=== PATIENT | female | born 1990 | race Caucasian/White ===

== ENCOUNTER 2024-03-07 18:51 | Emergency (ER) | payer MEDICAID, SELFPAY ==
--- NOTE | 2024-03-07 19:02 | XR_ITS ---
Patient: KIMBERLY MCNAMARA Facility:?[facility] Patient ID:?[id number] Site Patient ID:?[id number] Site :?1990 Study:?XRay-Extremity Right 3V-03/07/2024 7:23:48 PM Ordering Physician:REMEDIOS Final Report: Indication: Injury. Technique: Right elbow 3 views. Comparison: None. Findings: Bones: Alignment is normal. No fractures or bone lesions. Joint spaces: Unremarkable. No joint effusion. Soft tissues: Unremarkable. Impression: No evidence of an acute bony abnormality. Dictated by Sandip Corona MD @ 03/07/2024 7:36:36 PM Signed by:?Sandip Corona MD @03/07/2024 7:36:36 PM (Electronic Signature)
--- NOTE | 2024-03-07 19:03 | ED_ITS ---
HPI - General Adult General Chief complaint: Extremity Pain/Injury, Upper Stated complaint: injured elbow Time Seen by Provider: 03/07/24 18:55 History of Present Illness HPI narrative: This 33-year-old female comes in reporting an injury to her right elbow that occurred just prior to arrival. She was at home and talking on her phone and had her arm up in the air above her head and accidentally bumped into a brick structure that surrounds a chimney in the home. She did not fall or have loss of consciousness. She states that she did fracture that elbow when she was about fiber 5 years old. She does not report any other injury. She indicates pain primarily in the right elbow and has no other injury. Related Data Previous Rx's Medication Instructions Recorded ketorolac 10 mg tablet 10 mg PO Q8H 5 days #15 tabs 03/07/24 Allergies Allergy/AdvReac Type Severity Reaction Status Date / Time No Known Drug Allergies Allergy Verified 03/07/24 19:24 Review of Systems Status of ROS: Reports: 10 or more systems reviewed and unremarkable except as noted in History and below Narrative: Constitutional: No fevers, no weight gain or loss. Eyes: No discharge. No vision changes. HENT: No congestion, no sore throat, no ear pain. Cardiovascular: No chest pain, no palpitations. Respiratory: No shortness of breath, no wheezes, no cough. Gastrointestinal: No abdominal pain, no vomiting, no diarrhea. Genitourinary: No dysuria, no hematuria. Musculoskeletal: Diffuse pain in the right elbow. Skin: No rashes, no pruritis. Neurological: No dizziness, weakness, sensory change, speech change. Endo/Heme/Allergies: No bruising or bleeding. No polydipsia. Pysch: no suicidality, no anxiety, no insomnia. All other systems reviewed and are negative. PFSH PFSH Social History Smoking Status: Never smoker Non-prescribed substance use: denies use Exam Narrative: Exam Narrative: Constitutional: Well-developed, well-nourished, no acute distress. HEENT: Normocephalic, atraumatic. Neck: Normal range of motion. Nontender. Supple. Heart: Intact distal pulses. Lungs: No chest discomfort. No wheezes, rhonchi, or rales. Abdomen: Nontender. Back: Normal range of motion. Extremities: Pain in the right elbow with no sign of skin injury or swelling or deformity. Skin: Intact. No rash. Warm. No erythema or pallor. Neurologic: No altered sensation. No weakness. Alert and oriented. Psychiatric: No suicidality. No anxiety or depression. No insomnia. Nursing notes and vitals signs are reviewed. Const: Vital Signs, click to edit/add: Vital Signs - 24 hr 03/07/24 19:07 Temperature 97.7 F Pulse Rate [Left P ulse Oximeter] 72 Respiratory Rate 18 Blood Pressure [Le ft Upper Arm] 124/88 Pulse Oximetry 99 Oxygen Delivery Me thod Room Air Course Vital Signs Vital signs: Initial Vital Signs Temperature 97.7 F 03/07/24 19:07 Temperature Source Temporal Artery Scan 03/07/24 19:07 Pulse Rate 72 03/07/24 19:07 Pulse Rhythm Regular 03/07/24 19:07 Pulse Strength 3+ Normal 03/07/24 19:07 Respiratory Rate 18 03/07/24 19:07 Blood Pressure 124/88 03/07/24 19:07 Blood Pressure Mean 100 03/07/24 19:07 Blood Pressure Position Sitting 03/07/24 19:07 Pulse Oximetry 99 03/07/24 19:07 Oxygen Delivery Method Room Air 03/07/24 19:07 Vital Signs Temperature 97.7 F 03/07/24 19:07 Pulse Rate 72 03/07/24 19:07 Respiratory Rate 18 03/07/24 19:07 Blood Pressure 124/88 03/07/24 19:07 Pulse Oximetry 99 03/07/24 19:07 Oxygen Delivery Method Room Air 03/07/24 19:07 Temperature 97.7 F 03/07/24 19:07 Pulse Rate 72 03/07/24 19:07 Respiratory Rate 18 03/07/24 19:07 Blood Pressure 124/88 03/07/24 19:07 Pulse Oximetry 99 03/07/24 19:07 Oxygen Delivery Method Room Air 03/07/24 19:07 Medical Decision Making MDM Narrative Medical decision making narrative: This patient comes in with an injury to her right elbow as described above. X- ray imaging shows no sign of fracture or dislocation. The patient did receive a sling to be used as needed. I did encourage her to increase activity as tolerated. She also received a prescription for Toradol. Imaging Data XR R Elbow: Radiologist's impression: No evidence of an acute bony abnormality. Discharge Plan Discharge Clinical Impression: Contusion of elbow, right Patient Disposition: Home, Self-Care Condition: Stable Additional Instructions: Use sling as needed. Increase activity as tolerated. Take medicine also as needed and directed. Return if worsening. Prescriptions: New ketorolac 10 mg tablet 10 mg PO Q8H 5 Days Qty: 15 0RF Follow Up/Referrals: Provider,Not a Local [Primary Care Provider] - Stand Alone Forms: [employer] Info Instructions
[2024-03-07 19:07] VITALS: BP 124/88; PULSE 72; RESP 18; TEMP 36.5; O2SAT 99; BMI 27.9
[2024-03-07 20:04] VITALS: BP 124/88; PULSE 72; RESP 18; TEMP 36.5
== END 2024-03-07 20:04 | disposition home or self-care (01) ==
PROVIDERS: Emergency Provider Emergency Medicine Emergency Medical Services
DX: M25.521 Pain in right elbow (principal); W22.8XXA Striking against or struck by other objects, initial encounter
CPT/HCPCS: 73080; 99283; 99284

== ENCOUNTER 2024-12-31 08:50 | Emergency (ER) | payer MEDICAID, BC, SELFPAY ==
[2024-12-31 09:03] VITALS: BP 102/71; PULSE 79; RESP 16; TEMP 36.4; O2SAT 97; BMI 29.4
[2024-12-31 09:41] LABS: Strep A DNA Probe* NOT DETECTED (Not Detectd)
[2024-12-31] MEDS: DEXAMETHASONE 10 MG/ML PF PO (09:42)
--- NOTE | 2024-12-31 09:47 | ED_ITS ---
HPI - General Adult General Date Seen: 12/31/24 Chief complaint: Sore Throat Stated complaint: Short of breath, sore throat Time Seen by Provider: 12/31/24 08:54 Source: patient Mode of arrival: ambulatory Limitations: no limitations History of Present Illness HPI narrative: Patient is a 34-year-old female with no pertinent medical problems presenting to the emergency department for multiple complaints. She states for the past 5 days she has been feeling short of breath and has been having a sore throat. Her son started having similar symptoms 2-3 days ago. She has not noticed any f kristal or chills but does states her throat will hurt whenever she tries to eat or take a deep breath. Denies any chest pain, lightheadedness, dizziness. Not aware of any sick contacts other than her family. Has been having some mild rhinorrhea. Has been using DayQuil with minimal improvement in her symptoms. Has not noticed any swelling underneath her tongue. Denies headache, abdominal pain, nausea/vomiting, diarrhea, weakness. Related Data Home Medications ?Medication ?Instructions ?Recorded ?Confirmed No Known Home Medications 12/31/24 12/31/24 Allergies Allergy/AdvReac Type Severity Reaction Status Date / Time Sulfa (Sulfonamide Allergy Unknown Verified 12/31/24 09:06 Antibiotics) Review of Systems Status of ROS: Reports: 10 or more systems reviewed and unremarkable except as noted in History and below [facility] Social History Smoking Status: Never smoker Do you use any of these nicotine containing products: None How often do you have a drink containing alcohol: never How often do you have six or more drinks on one occasion: Never AUDIT-C Alcohol total score: 0 Non-prescribed substance use: denies use Exam Narrative: Exam Narrative: Const: Well-nourished, Well-developed, in mild distress Eyes: PERRL, no conjunctival injection, and symmetrical lids HENT: Atraumatic external nose and ears. Moist mucous membranes. Uvula midline, no tonsillar exudate or swelling. Mild posterior oropharynx erythema. No swelling under tongue Neck: Symmetric, trachea midline, No thyromegaly. CVS: RRR, No murmurs or gallops. Peripheral pulses 2+ and equal in all extremities RESP: Unlabored respiratory effort. Clear to auscultation bilaterally. GI: Nontender/Nondistended, No rebound or guarding. MSK:Extremities w/o deformity, Normal Active ROM Skin: Warm, Dry. No rashes or lesions. Neuro: Normal Muscle tone, No focal neurological deficits. Psych: Awake, Alert, & Oriented x3. Appropriate mood and affect. Const: Vital Signs, click to edit/add: Vital Signs - 24 hr 12/31/24 09:03 Temperature 97.5 F L Pulse Rate [Pulse Oximeter] 79 Respiratory Rate 16 Blood Pressure [Ri t Upper Arm] 102/71 Pulse Oximetry 97 Oxygen Delivery Me thod Room Air Course Vital Signs Vital signs: Initial Vital Signs Temperature 97.5 F L 12/31/24 09:03 Temperature Source Temporal Artery Scan 12/31/24 09:03 Pulse Rate 79 12/31/24 09:03 Respiratory Rate 16 12/31/24 09:03 Blood Pressure 102/71 12/31/24 09:03 Blood Pressure Mean 81 12/31/24 09:03 Blood Pressure Position Sitting 12/31/24 09:03 Pulse Oximetry 97 12/31/24 09:03 Oxygen Delivery Method Room Air 12/31/24 09:03 Vital Signs Temperature 97.5 F L 12/31/24 09:03 Pulse Rate 79 12/31/24 09:03 Respiratory Rate 16 12/31/24 09:03 Blood Pressure 102/71 12/31/24 09:03 Pulse Oximetry 97 12/31/24 09:03 Oxygen Delivery Method Room Air 12/31/24 09:03 Temperature 97.5 F L 12/31/24 09:03 Pulse Rate 79 12/31/24 09:03 Respiratory Rate 16 12/31/24 09:03 Blood Pressure 102/71 12/31/24 09:03 Pulse Oximetry 97 12/31/24 09:03 Oxygen Delivery Method Room Air 12/31/24 09:03 Medications Administered Medications: Discontinued Medications Generic Name Dose Route Start Last Admin Trade Name Freq PRN Reason Stop Dose Admin Dexamethasone Sodium Phosphate 10 mg 12/31/24 09:21 12/31/24 09:42 Dexamethasone 10 Mg/Ml Pf PO 12/31/24 09:22 10 mg ONCE ONE Administration Medical Decision Making MDM Narrative Medical decision making narrative: Patient is a 34-year-old female presenting for what sounds like viral symptoms. Will test for strep, COVID, flu, RSV. Will give her dexamethasone for her sore throat. Will do a chest x-ray look for signs of pneumonia. Patient is not showing signs of peritonsillar abscess, Alejandro angina, retropharyngeal abscess,Lemierre disease or any other concerning oral pharynx or deep neck space abscesses. Imaging is not necessary of her neck. Chest x-ray shows no acute concerning abnormalities. Strep and viral swabs are negative. She will be discharged. She is agreeable to this plan. Lab Data Labs: Lab Results 12/31/24 Range/Units 09:00 SARS-CoV-2 (PCR) Negative SARS-CoV-2 (Negative) Influenza Type A (PCR) Negative PCR FLU A (Negative) Influenza Type B (PCR) Negative PCR FLU B (Negative) RSV (PCR) Negative PCR RSV (Negative) Group A Strep DNA NOT DETECTED (Not Detectd) Imaging Data Chest x-ray: Attestation: I have reviewed the pertinent imaging results. Radiologist's impression: Cardiovascular and mediastinum: Heart size and vasculature are normal in caliber and appearance. Mediastinum is within normal limits. Lungs and pleural spaces: Lungs are clear. No sign of infiltrate or mass. No sign of pleural effusion. No pneumothorax. Bones and soft tissues: No significant findings. Dictated by Antolin Grossman MD @ 12/31/2024 9:59:23 AM Discharge Plan Discharge Clinical Impression: Acute viral syndrome Patient Disposition: Home, Self-Care Condition: Stable Instructions: Viral Syndrome (ED) Additional Instructions: Take Tylenol and ibuprofen for symptoms. Return to emergency department for new or worsening symptoms. I believe your symptoms are likely from a virus. Prescriptions: No Action No Known Home Medications Follow Up/Referrals: Provider,Not a Local [Primary Care Provider] - Stand Alone Forms: [email or web address] Info Instructions
[2024-12-31 09:57] LABS: PCR FLU A Negative PCR FLU A (Negative); PCR FLU B Negative PCR FLU B (Negative); PCR RSV Negative PCR RSV (Negative); SARS PCR* Negative SARS-CoV-2 (Negative)
== END 2024-12-31 10:53 | disposition home or self-care (01) ==
PROVIDERS: Emergency Provider Student in an Organized Health Care Education/Training Program
DX: B34.9 Viral infection, unspecified (principal)
CPT/HCPCS: 71046; 87631; 87651; 99283; J1100

== ENCOUNTER 2025-01-03 17:20 | Emergency (ER) | payer BC, MEDICAID, SELFPAY ==
[2025-01-03 17:23] VITALS: BP 107/73; PULSE 94; RESP 18; TEMP 36.8; O2SAT 96; BMI 29.8
--- NOTE | 2025-01-03 17:37 | ED.GENADULT ---
HPI - General Adult General Chief complaint: Cough Stated complaint: Congested, Sinus Pressure, Left shoulder pain Time Seen by Provider: 01/03/25 17:22 Source: patient Mode of arrival: ambulatory Limitations: no limitations History of Present Illness HPI narrative: 34-year-old female presenting with congestion, cough, decreased energy for 2 weeks. She was seen 3 days ago triple swab was negative, strep negative and chest x-ray was clear. She states that she received a dose of steroid and felt better for about a day and half but now she has increased pain across her face, increased thick nasal discharge. Cough has not improved any. She denies fevers, no chills. No vomiting. No rashes. Cough is mild and nonproductive. She is not short of breath. Related Data Previous Rx's ?Medication ?Instructions ?Recorded amoxicillin 875 mg-potassium 1 tab PO BID 5 days #10 tabs 01/03/25 clavulanate 125 mg tablet Allergies Allergy/AdvReac Type Severity Reaction Status Date / Time Sulfa (Sulfonamide Allergy Unknown Verified 01/03/25 17:29 Antibiotics) Review of Systems Status of ROS: Reports: 10 or more systems reviewed and unremarkable except as noted in History and below [facility] Social History Smoking Status: Never smoker Do you use any of these nicotine containing products: None How often do you have a drink containing alcohol: never How often do you have six or more drinks on one occasion: Never AUDIT-C Alcohol total score: 0 Non-prescribed substance use: denies use Exam Narrative: Exam Narrative: Well-nourished well-developed patient in no acute distress. Alert and oriented. Answers questions appropriately. Mood and affect are appropriate. Thoughts are goal oriented and rational. No tangential or magical thinking noted. Patient speaks in full sentences without needing to catch her breath. Sounds quite congested. HEENT: Normocephalic atraumatic. Pupils are equally round reactive to light. Extraocular muscles are intact. Conjunctivae are moist without any icterus noted. Moist mucous membranes. Posterior pharynx is normal. Neck is soft without any lymphadenopathy or thyromegaly. No masses are appreciated. Tenderness across the maxillary sinuses. Cardiovascular: Heart is regular rate and rhythm S1 and S2 are present without any murmurs. Lungs: Clear to auscultation bilaterally no wheezes rhonchi or rales are appreciated. Patient takes deep breaths without any discomfort. Skin: Well perfused without any obvious rashes. Const: Vital Signs, click to edit/add: Vital Signs - 24 hr 01/03/25 17:23 Temperature 98.3 F Pulse Rate [Right Pulse Oximeter] 94 Respiratory Rate 18 Blood Pressure [Ri ght Upper Arm] 107/73 Pulse Oximetry 96 Oxygen Delivery Me thod Room Air Course Vital Signs Vital signs: Initial Vital Signs Temperature 98.3 F 01/03/25 17:23 Temperature Source Temporal Artery Scan 01/03/25 17:23 Pulse Rate 94 01/03/25 17:23 Pulse Rhythm Regular 01/03/25 17:23 Pulse Strength 3+ Normal 01/03/25 17:23 Respiratory Rate 18 01/03/25 17:23 Blood Pressure 107/73 01/03/25 17:23 Blood Pressure Mean 84 01/03/25 17:23 Blood Pressure Position Sitting 01/03/25 17:23 Pulse Oximetry 96 01/03/25 17:23 Oxygen Delivery Method Room Air 01/03/25 17:23 Vital Signs Temperature 98.3 F 01/03/25 17:23 Pulse Rate 94 01/03/25 17:23 Respiratory Rate 18 01/03/25 17:23 Blood Pressure 107/73 01/03/25 17:23 Pulse Oximetry 96 01/03/25 17:23 Oxygen Delivery Method Room Air 01/03/25 17:23 Temperature 98.3 F 01/03/25 17:23 Pulse Rate 94 01/03/25 17:23 Respiratory Rate 18 01/03/25 17:23 Blood Pressure 107/73 01/03/25 17:23 Pulse Oximetry 96 01/03/25 17:23 Oxygen Delivery Method Room Air 01/03/25 17:23 Medical Decision Making MDM Narrative Medical decision making narrative: 34-year-old female with acute sinusitis. Will treat with Augmentin for 5 days. Discharge Plan Discharge Clinical Impression: Sinusitis Patient Disposition: Home, Self-Care Condition: Stable Additional Instructions: Recommend twice daily Neti pot use, okay to use ibuprofen as needed/as directed for aches and pains. Get plenty of rest and stay well hydrated. Use antibiotics as directed for 5 days. Prescriptions: New amoxicillin-pot clavulanate 875-125 mg tablet 1 tab PO BID 5 Days Qty: 10 0RF Follow Up/Referrals: Provider,Not a Local [Primary Care Provider] - Stand Alone Forms: [employer] Info Instructions
== END 2025-01-03 17:45 | disposition home or self-care (01) ==
LOC: ED 17:41
PROVIDERS: Emergency Provider Family Medicine
DX: J32.9 Chronic sinusitis, unspecified (principal)
CPT/HCPCS: 99283; 99284